=== PATIENT | male | born 1965 | race Caucasian/White ===

== ENCOUNTER 2020-08-22 08:57 | Outpatient (CLI) | payer MEDICAID, SELFPAY ==
--- NOTE | 2020-08-22 09:01 | CT_ITS ---
WS: [id number] CT CHEST WITH INTRAVENOUS CONTRAST HISTORY: HEAD/NECK CANCER TECHNIQUE: Contiguous 5 mm axial imaging performed on the thorax. Coronal and sagittal reformats are submitted. All CT scans at [facility] use at least one of these dose optimization techniq ues: automated exposure control; mA and/or kV adjustment per patient size (includes targeted exams wh ere dose is matched to clinical indication); or iterative reconstruction. CONTRAST: Omnipaque 300; 95 mL IV. DLP: 624.47 mGy.cm COMPARISON: 08/24/2019 Lungs and central airway: No pulmonary nodules or masses. No pneumonia. Pleura: Normal. No pleural effusion. Heart and pericardium: Normal size heart with no pericardial effusion. Mediastinum and gil: Subcentimeter RIGHT hilar lymph node at 8 mm. No suspicious adenopathy. Vessels: Normal size aortic and pulmonary artery. Chest wall and lower neck: No soft tissue masses. Upper abdomen: Small hiatal hernia and mild thickening of the distal esophagus. Mild hepatic steatosi s. Visualized gallbladder is normal. No adrenal mass. Osseous structures: No destructive process. CT/CT chest w con* [id number] IMPRESSION: 1. No evidence for pulmonary metastatic disease or pneumonia. 2. No adenopathy. 3. Mild thickening of the distal esophagus may be related to esophagitis or re flux disease.
--- NOTE | 2020-08-22 09:01 | CT_ITS ---
WS: [id number] CT NECK WITH CONTRAST HISTORY: HEAD/NECK CANCER TECHNIQUE: Contiguous 5 mm axial images are performed through the neck with intravenous contrast. Sag ittal and coronal reformats are also submitted. All CT scans at [facility] use at least o ne of these dose optimization techniques: automated exposure control; mA and/or kV adjustment per pat ient size (includes targeted exams where dose is matched to clinical indication); or iterative recons truction. CONTRAST: CONTRAST: Omnipaque 300; 95 mL IV. DLP: 731.46 mGy.cm COMPARISON: 06/15/2019 Prior resection of the oral pharyngeal tumor, partial LEFT mandibular and LEFT radical neck dissectio n. Stable postsurgical changes along the LEFT neck and mandible. There is no recurrent mass identified. The soft tissue enhancement and thickening has improved over time. No compromise of the airway. No ad enopathy along the cervical chains. There is new thrombus in the posterior LEFT carotid bifurcation measuring up to 5 mm in diameter. Lum en of the carotid remains greater than 50%. Mucous retention cyst in the RIGHT maxillary sinus. Bilateral mucoperiosteal thickening in the maxill fede cavities. There is extensive areas of decreased attenuation throughout the mandible and maxilla which are proba thomas related to prior radiation and treatment and dental caries. No soft tissue masses associated with the mandible or maxilla. Lung apices are clear. CT/CT neck w con* [id number] IMPRESSION: 1. Status post resection of an oropharyngeal tumor with partial LEFT mandible and LEFT radical neck dissection. 2. No recurrent tumor or adenopathy. 3. New mural thickening in the LEFT carotid bifurcation.
[2020-08-22] MEDS: iohexol 300 mg/mL 100 mL Btl IV ×2 (10:29→10:30)
== END 2020-08-22 08:58 | disposition home or self-care (01) ==
LOC: CT 08:58
PROVIDERS: PCP Family Medicine; Visit Provider Internal Medicine Medical Oncology
DX: C06.2 Malignant neoplasm of retromolar area (principal); D70.1 Agranulocytosis secondary to cancer chemotherapy; G89.3 Neoplasm related pain (acute) (chronic)
CPT/HCPCS: 70491; 71260

== ENCOUNTER 2020-08-24 15:54 | Outpatient (CLI) | payer MEDICAID, SELFPAY ==
[2020-08-24 16:55] LABS: Alanine Aminotransferase 43 U/L (0-41); Albumin Level 4.3 g/dL (3.5-5.2); Alkaline Phosphatase 93 IU/L (40-130); Anion Gap 14.4 (5-19); Aspartate Amino Transferase 26 U/L (0-40); Blood Urea Nitrogen 24 mg/dL (6-20); Calcium 9.2 mg/dL (8.5-10.5); Carbon Dioxide 25 mmol/L (22-29); Chloride 103 mmol/L (98-107); Globulin 2.8 g/dL (1.3-4.6); Glomerular Filtration Rate 62.4 mL/min (90-130); Glucose 106 mg/dL (65-115); Osmolality Calculated 290 mOsm/kg (285-295); Potassium 4.4 mmol/L (3.5-5.1); Sodium 138 mmol/L (136-145); Total Bilirubin 0.2 mg/dL (0.15-1.2); Total Protein 7.1 g/dL (6.6-8.7)
[2020-08-24 17:17] LABS: Basophils % 0.5 %; Eosinophils # 0.1 10^3/uL (0.0-0.8); Eosinophils % 1.4 %; Lymphocytes # 0.9 10^3/uL (0.8-4.8); Lymphocytes % 15.4 %; Mean Corpuscular HGB Conc 31.9 g/dL (30.0-36.0); Mean Corpuscular Hemoglobin 31.3 pg (28.0-34.0); Mean Corpuscular Volume 98.1 fL (80-94); Mean Platelet Volume 8.9 fL (7.4-10.4); Monocytes # 0.8 10^3/uL (0.2-0.9); Monocytes % 13.8 %; Neutrophils # 3.95 10^3/uL (1.8-7.7); Neutrophils % 68.2 %; Nucleated Red Blood Cells % 0 %; Platelet Count 319 10^3/cmm (130-400); Red Blood Count 4.79 10^6/uL (4.1-5.3); Red Cell Distribution Width 12.8 % (12.1-15.1); White Blood Count 5.8 10^3/uL (4.0-10.0)
== END 2020-08-24 15:55 | disposition home or self-care (01) ==
PROVIDERS: PCP Family Medicine; Visit Provider Internal Medicine Medical Oncology
DX: C06.2 Malignant neoplasm of retromolar area (principal); E03.9 Hypothyroidism, unspecified
CPT/HCPCS: 36415; 80053; 84443; 85025

== ENCOUNTER 2020-08-28 06:01 | Outpatient (CLI) | payer MEDICAID, SELFPAY ==
--- NOTE | 2020-08-29 07:25 | ONC FU_ITS ---
Dr. Kimball Patient Follow-Up Note Patient: Guido Haney Unit #: [id number]: 1965 Dicatated By: Guido Kimball M.D.Date of Visit:Aug 28, 2020 Onc Med Follow-up/Prog Note Chief Complaint: Squamous cell carcinoma of the oropharynx. 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 He had presented with left jaw pain, onset of which was back in the summer of 2018. Eventually he was referred to an ENT physician and he was found to have a left retromolar trigone mass. A CT of the neck on 11/30/2018 showed a large enhancing mass including the left oropharyngeal palatine tonsil and the student teaching coordinator space abutting the left mandibular body. Prominent level II lymph nodes were noted on the left and subcentimeter nodes were noted in the level III area. Biopsy of the mass on 12/07/2018 showed invasive moderately differentiated keratinizing squamous cell carcinoma, P 16 negative. Staging PET/CT on 12/08/2018 showed hyperbolic mass which appeared to be centered within the left retromolar trigone with cortical destruction of the adjacent mandibular ramus. There was asymmetric hypermetabolism fullness along the left pharyngeal wall/tonsillar pillar which was felt to be concerning for direct extension of the primary retromolar lesion. There were hypermetabolic left level IIb cervical lymph nodes. There were no additional discrete hypermetabolic cervical lymph nodes noted and there was no evidence of distant metastatic involvement. A conspicuous area of mural thickening hypermetabolism within the left lateral aspect of the distal descending colon, maximum SUV 3.5, was felt to possibly represent an area of physiologic contraction, though direct visualization was recommended to exclude neoplastic process. On 12/23/2018 he underwent resection of the left retrocrural trigone tumor and oropharynx tumor with left composite mandibular resection and left neck dissection. Pathology showed invasive moderately differentiated keratinizing squamous cell carcinoma of the left retromolar trigone region with marked deep extension of the underlying mucosa and extension into the left tonsil and oral pharynx. The tumor measured 2.9 x 2.5 cm. Mucosal margins were noted to be free of tumor, but there was extensive involvement of the deep soft tissue resection margins. Tumor was noted to invade through the cortical bone of the mandible. The mandibular bone margin was negative. The left neck dissection showed involvement in 4/9 level 1 lymph nodes, the largest measuring 0.8 cm in diameter and with no extracapsular invasion identified. There was metastatic involvement in 3/17 level 2 nodes with the largest metastasis measuring 2 cm with evidence of extracapsular invasion. There was no involvement in the 11 level III lymph nodes and no involvement in 5 level IV lymph nodes. Excision of left pterygium noted muscle soft tissue did show invasive moderately differentiated squamous cell carcinoma. The final pathologic staging was pT4a, pN2b. He began radiation concurrently with standard high-dose cisplatin chemotherapy on 03/03/2019. He completed radiation on 04/22/2019 to a total dose of 5600 cGy. His chemotherapy was limited to 2 cycles of cisplatin, the second cycle having been delayed due to persistent neutropenia. He otherwise tolerated the treatment well. Restaging neck CT on 06/17/2019 showed postoperative changes with no evidence of residual or recurrent neoplastic process or adenopathy. There was evidence of right upper lobe pneumonitis and there was evidence of C5-C6 and C6-C7 cervical spondylosis. He continued observation/expectant management. A restaging PET/CT on 08/24/2019 showed some uptake associated with the mandibulectomy, but there was no evidence of residual or recurrent disease. His other medical illnesses have been limited to hypertension and hyperlipidemia. He is a nonsmoker, but he has a long history of chewing tobacco, which she quit in 2015. 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 INTERIM HISTORY: Surveillance CT of the neck on 08/22/2020 showed changes associated with prior resection of oropharyngeal tumor with partial left mandible and left radical neck dissection. There was no evidence for recurrent tumor or adenopathy. There was evidence for new mural thickening in the left carotid bifurcation. Chest CT at that time showed no evidence for pulmonary metastatic disease. There was no hilar/mediastinal adenopathy noted. There was mild thickening of the distal esophagus, possibly related to esophagitis or reflux disease. He is seen for a follow-up visit. He indicates that he had a minor viral illness 2 weeks ago. His COVID-19 testing was negative. He says he still has some mild residual lung congestion and a little bit of cough, but he is mostly recovered. His energy is not as good, but he is working. ECOG score is 1. Appetite is not all that good, mainly because of the effort it takes for him to chew and eat. His weight, though, is up a few pounds. He does not have fever or night sweats. He still has some difficulty swallowing, particularly textured foods. His breathing is pretty good. He does not have chest pain. He was having some nausea, that has resolved. Bowel and bladder function have been pretty good, though he is prone to having loose stools. He has had some pain in his right ankles and his knees bother him occasionally. He does not complain of headache or dizziness. He has no focal neurologic symptoms. Medications: Atorvastatin Calcium 1 (20 mg) Tablet Oral daily, Gabapentin 1 Capsule (of 300 mg) Oral t.i.d. PRN Allergies: No Known Allergies. Review of Systems: Constitutional - His energy is not as good, but he is working. His appetite is not very good, mainly because of the effort involved in eating. His weight is up a little. He has not had fever or night sweats. ECOG score is 1, ENMT - No sinus congestion/drainage. No soreness in the mouth or throat, but he has difficutly with chewing, and he still has some difficulty swallowing, particulary foods with texture, Hematologic/Lymphatic - No abnormal bruising or bleeding, Respiratory - No shortness of breath. He has a little bit of residual cough. No pleuritic pain or hemoptysis, Cardiovascular - No angina pain. No palpitations, Gastrointestinal - He had some nausea with a recent viral illness. No heartburn or acid reflux. His bowels tend to be loose. No blood in the stool or black stools, Genitourinary (M) - No dysuria or hematuria. No urinary frequency. No urgency or incontinence, Musculoskeletal - He has had some joint pain, mainly in the right ankle and occasionally in the knees, Integumentary - No skin rash, Neurologic - No headache or dizziness. No numbness or tingling. No other focal neurologic symptoms, Psychiatric - He has some anxiety/depression and he has some difficulty sleeping. Vital Signs: Performed on Aug 28, 2020 09:19 Height - 68.00 in Weight - 171.6 lbs (HIGH) BSA - 1.92 sq.m BMI - 26.09 Temperature - 97.6 F (LOW) Pulse - 92 /min Respiration - 16 /min BP - 141/83 mm(hg) (HIGH) O2 Sat - 99 % Pain - 0 Physical Examination: Constitutional - He looks pretty good generally, Eyes - Sclerae nonicteric. Conjunctivae clear, ENMT - There is deformity wtihin the oral cavity related to prior surgeries and he has limited mobility of the mouth. There are no other lesions noted in the oral cavity, Hematologic/Lymphatic - No cervical, clavicular, or axillary adenopathy, Respiratory - Lungs are clear with some decrease in air movement bilaterally, Cardiovascular - Heart rhythm is regular. There is no murmur, gallop, or rub noted. There is no carotid bruit noted, Abdomen - Soft. Liver and spleen are not enlarged. There is no abdominal mass or ascites noted and there is no inguinal adenopathy, Extremities - No edema, Neurologic - There is a left facial deficit. There are no other focal neurologic deficits noted. Lab/Imaging: Test performed on Aug 24, 2020 16:04 Sodium 138 mmol/L TSH 17.40 uIU/mL Potassium 4.4 mmol/L Chloride 103 mmol/L CO2 25 mmol/L Anion Gap 14.4 BUN 24 mg/dL Creatinine 1.2 mg/dL Cr Clearance (Est) 70.1600 mL/min eGFR 62.4 mL/min Glucose 106 mg/dL Osmolality - Calculated 290 mOsm/kg Calcium 9.2 mg/dL Protein, Total 7.1 g/dL Albumin 4.3 g/dL Globulin 2.8 g/dL Bilirubin, Total 0.2 mg/dL ALT (SGPT) 43 U/L AST (SGOT) 26 U/L Alkaline Phosphatase 93 IU/L WBC 5.8 10 3/uL RBC 4.79 10 6/uL HGB 15.0 g/dL HCT 47.0 % MCV 98.1 fL MCH 31.3 pg MCHC 31.9 g/dL RDW 12.8 % Platelet Count 319 10 3/cmm MPV 8.9 fL Neutrophils 3.95 10 3/uL Lymphocytes 0.9 10 3/uL Monocytes 0.8 10 3/uL Eosinophils 0.1 10 3/uL Basophils 0.0 10 3/uL Neutrophil % 68.2 % Lymphocyte % 15.4 % Monocyte % 13.8 % Eosinophil % 1.4 % Basophils % 0.5 % NRBC % 0 % Impression: 1. 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 2. He underwent extensive surgical resection which included resection of the oral cavity and composite resection of the mandible, right anterolateral thigh free flap reconstruction, pharyngoplasty, and left radical neck dissection on 12/23/2018. 3. He began radiation concurrently with standard high-dose cisplatin chemotherapy on 03/03/2019. He completed radiation on 04/22/2019 to a total dose of 5600 cGy. His chemotherapy was limited to 2 cycles of cisplatin, the second cycle having been delayed due to persistent neutropenia. He otherwise tolerated the treatment well. He was then followed on observation/expectant management. 4. Restaging PET/CT on 08/24/2019 showed uptake associated with the mandibulectomy, but no evidence of residual or recurrent malignancy. His other medical illnesses include: 5. Hypertension. 6. Hyperlipidemia. He had gradual recovery following the chemoradiation. Initially he was having difficulty adjusting to the structural changes associated with the surgery and the after-effects of the chemoradiation. Over time that did gradually improve. During subsequent follow-up, his clinical status has remained stable. Thus far there has been no evidence of recurrence of the oropharynx cancer. There is some new mural thickening at the left carotid bifurcation noted on his current CT scan. Plan: He will remain on observation/expectant management for the oropharynx cancer. I will review the neck CT with the radiologist, and I will discuss further management for the carotid artery findings with Dr. Stewart. I will tentatively plan a follow-up visit in 6 months. Signed By: Guido Kimball M.D. <<Signature on File>>
== END 2020-08-28 06:02 | disposition home or self-care (01) ==
LOC: ONCMED 06:03
PROVIDERS: PCP Family Medicine; Visit Provider Internal Medicine Medical Oncology
DX: Z08 Encounter for follow-up examination after completed treatment for malignant neoplasm (principal); Z85.818 Personal history of malignant neoplasm of other sites of lip, oral cavity, and pharynx; I10 Essential (primary) hypertension; E78.5 Hyperlipidemia, unspecified; Z92.3 Personal history of irradiation; Z92.21 Personal history of antineoplastic chemotherapy; Z23 Encounter for immunization
CPT/HCPCS: 90686; 90732; 99214

== ENCOUNTER 2020-10-23 08:05 | Outpatient (CLI) | payer MEDICAID, SELFPAY ==
--- NOTE | 2020-10-23 08:09 | CT_ITS ---
WS: [id number] Exam: CT angio neck [id number] Date/Time of Exam: 10/23/2020 8:19 AM Reason For Exam: MALIGNANT [place] RETROMOLAR AREA; ATHEROSCLEROSIS L CAROTID DLP: 842.[address] scans at [facility] use at least one of these dose optimization techniques: automat ed exposure control; mA and/or kV adjustment per patient size (includes targeted exams where dose is matched to clinical indication); or iterative reconstruction. The neck is evaluated in the axial plane with sagittal coronal reformatted images. Comparison made to previous exam 06/17/2019. 100 mL of nonionic contrast administered intravenously. There are signs of prior radical left neck dissection without evidence of the new or recurrent mass. Stable appearing postoperative changes are noted. The body and ramus of the left mandible are surgic ally absent. No significant lymphadenopathy demonstrated. The bilateral common carotid and extracrani al internal carotid arteries are patent. Patent bilateral vertebral arteries, the left is dominant. N o mass is seen in the region of the tongue base. The airway is patent. Unremarkable thyroid tissue. T he upper lung zones show no mass or nodule. Emphysematous changes. The great vessels are patent at th e level of the aortic arch. Mucosal thickening in the sphenoid, ethmoid and maxillary sinuses. 2.2 c m retention cyst in the right maxillary sinus. Degenerative disc changes and mild spondylosis identif ied at the lower cervical spine. No destructive bone lesions are seen. CT/CT angio neck [id number] IMPRESSION: 1. Status post radical left neck dissection with surgical absence of the left m andible as previously noted. No sign of recurrent or new mass in the neck. No s ignificant lymphadenopathy. 2. The bilateral common carotid and extracranial internal carotid arteries are widely patent without critical stenosis or occlusion. 3. Moderately advanced chronic maxillary sinusitis noted bilaterally. Mild dba developer jake sinus disease of the ethmoid and sphenoid sinuses.
[2020-10-23] MEDS: iohexol 350 mg/mL 100 mL Btl IV (08:50)
== END 2020-10-23 08:06 | disposition home or self-care (01) ==
LOC: RADWPI 08:06
PROVIDERS: PCP Family Medicine; Visit Provider Internal Medicine Medical Oncology
DX: I65.22 Occlusion and stenosis of left carotid artery (principal); J32.0 Chronic maxillary sinusitis
CPT/HCPCS: 70498; Q9967

== ENCOUNTER 2021-02-21 13:02 | Outpatient (CLI) | payer MEDICAID, SELFPAY ==
--- NOTE | 2021-02-21 13:14 | CT_ITS ---
WS: [id number] CT NECK TECHNIQUE: Contrast-enhanced CT of the neck with coronal and sagittal reformatted images. CLINICAL INFORMATION: HEAD/NECK CANCER COMPARISON: CT August 22, 2020, PET/CT , CT June 17, [address] and PET/CT November 2018 DLP: 2460.[address] scans at [facility] use at least one of these dose optimization techniques: automat ed exposure control; mA and/or kV adjustment per patient size (includes targeted exams where dose is matched to clinical indication); or iterative reconstruction. FINDINGS: Prior postoperative changes left hemimandibulectomy and left neck dissection for previous left retrot rigonal malignancy. Left submandibular gland resection. No evidence of recurrent or progressive disea se. No evidence of glottic or supraglottic mass. Subglottic airway is normal. Right parotid gland is normal in appearance. Retention cyst right maxillary sinus with mucosal thickening. Mild mucosal thickening left maxillary sinus. Mastoid air cells are well aerated. Frontal sinuses are well aerated. Mild mucosal thickening in the ethmoid air cells. Straightening of the normal cervical lordosis. Mild spondylitic changes. Pa rtially visualized intracranial contents unremarkable. Normal vallecula. Unremarkable thyroid gland. Lung apices are well aerated. CT/CT neck w con* [id number] IMPRESSION: 1. Prior postoperative changes left mandibulectomy with left radical neck diss ection. No evidence of recurrent or progressive disease. 2. Resection left submandibular gland with treatment-related changes in the le ft neck. 3. No cervical lymphadenopathy. 4. No evidence of supraglottic or glottic mass. 5. Retention cyst right maxillary sinus measuring 1.9 CM. Inflammatory changes in the paranasal sinuses.
[2021-02-21] MEDS: iohexol 300 mg/mL 100 mL Btl IV (13:38)
== END 2021-02-21 13:03 | disposition home or self-care (01) ==
PROVIDERS: PCP Family Medicine; Visit Provider Internal Medicine Medical Oncology
DX: C06.2 Malignant neoplasm of retromolar area (principal); M27.40 Unspecified cyst of jaw
CPT/HCPCS: 70491; Q9967

== ENCOUNTER 2021-02-23 10:37 | Outpatient (CLI) | payer MEDICAID, SELFPAY ==
--- NOTE | 2021-02-23 10:46 | CT_ITS ---
WS: [id number] CT CHEST TECHNIQUE: Contrast enhanced CT of the chest with coronal and sagittal reformatted images. CLINICAL INFORMATION: HEAD/NECK CANCER COMPARISON: CT chest August 22, 2020 DLP: 899.[address] scans at [facility] use at least one of these dose optimization techniques: automat ed exposure control; mA and/or kV adjustment per patient size (includes targeted exams where dose is matched to clinical indication); or iterative reconstruction. FINDINGS: No acute pulmonary infiltrates. Lungs are well aerated. No focal pneumonia or pleural fluid. No suspi cious pulmonary parenchymal abnormalities. Normal caliber thoracic aorta. Proximal main pulmonary art eries are normal. No axillary lymphadenopathy. No mediastinal or hilar lymphadenopathy. Adrenal glands are normal. Fluid distended stomach. Mild diffuse thickening of the distal esophagus c an be seen with esophagitis. Recommend clinical correlation. This is similar in appearance to the toan or examination. Gastric wall thickening with enhancement suspicious for gastritis CT/CT chest w con* [id number] IMPRESSION: 1. No acute pulmonary infiltrates. No suspicious pulmonary parenchymal abnorma lities. No evidence of pulmonary metastatic disease. 2. No mediastinal or hilar lymphadenopathy. 3. No axillary lymphadenopathy. 4. Mild circumferential thickening in the distal esophagus with gastric enhanc ement suspicious for gastritis and esophagitis.
[2021-02-23] MEDS: iohexol 300 mg/mL 100 mL Btl IV (11:04)
== END 2021-02-23 10:38 | disposition home or self-care (01) ==
PROVIDERS: PCP Family Medicine; Visit Provider Internal Medicine Medical Oncology
DX: C76.0 Malignant neoplasm of head, face and neck (principal)
CPT/HCPCS: 71260; Q9967

== ENCOUNTER 2021-02-27 12:27 | Outpatient (CLI) | payer MEDICAID, SELFPAY ==
[2021-02-27 12:57] LABS: Basophils % 0.4 %; Eosinophils % 0.6 %; Hematocrit 45.8 % (42.0-52.0); Hemoglobin 14.8 g/dL (11.7-16.6); Lymphocytes # 0.7 10^3/uL (0.8-4.8); Lymphocytes % 14.1 %; Mean Corpuscular HGB Conc 32.3 g/dL (30.0-36.0); Mean Corpuscular Hemoglobin 31.6 pg (28.0-34.0); Mean Corpuscular Volume 97.9 fL (80-94); Mean Platelet Volume 8.5 fL (7.4-10.4); Monocytes # 0.6 10^3/uL (0.2-0.9); Monocytes % 11.5 %; Neutrophils # 3.68 10^3/uL (1.8-7.7); Nucleated Red Blood Cells % 0 %; Platelet Count 251 10^3/cmm (130-400); Red Blood Count 4.68 10^6/uL (4.1-5.3)
[2021-02-27 13:50] LABS: Alanine Aminotransferase 56 U/L (0-41); Albumin Level 3.9 g/dL (3.5-5.2); Alkaline Phosphatase 72 IU/L (40-130); Anion Gap 12.7 (5-19); Aspartate Amino Transferase 42 U/L (0-40); Blood Urea Nitrogen 26 mg/dL (6-20); Calcium 8.5 mg/dL (8.5-10.5); Carbon Dioxide 29 mmol/L (22-29); Chloride 101 mmol/L (98-107); Globulin 2.3 g/dL (1.3-4.6); Glucose 96 mg/dL (65-115); Osmolality Calculated 291 mOsm/kg (285-295); Potassium 4.7 mmol/L (3.5-5.1); Sodium 138 mmol/L (136-145); Thyroid Stimulating Hormone 3.36 uIU/mL (0.27-4.20); Total Bilirubin 0.2 mg/dL (0.15-1.2); Total Protein 6.2 g/dL (6.6-8.7)
--- NOTE | 2021-03-03 10:35 | ONC FU_ITS ---
Dr. Kimball Patient Follow-Up Note Patient: Guido Haney Unit #: [id number]: [id number] Dicatated By: Guido Kimball M.D.Date of Visit:February 27, 2021 Onc Med Follow-up/Prog Note Chief Complaint: Squamous cell carcinoma of the oropharynx. 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 He had presented with left jaw pain, onset of which was back in the summer of 2018. Eventually he was referred to an ENT physician and he was found to have a left retromolar trigone mass. A CT of the neck on 11/30/2018 showed a large enhancing mass including the left oropharyngeal palatine tonsil and the principal account clerk space abutting the left mandibular body. Prominent level II lymph nodes were noted on the left and subcentimeter nodes were noted in the level III area. Biopsy of the mass on 12/07/2018 showed invasive moderately differentiated keratinizing squamous cell carcinoma, P 16 negative. Staging PET/CT on 12/08/2018 showed hyperbolic mass which appeared to be centered within the left retromolar trigone with cortical destruction of the adjacent mandibular ramus. There was asymmetric hypermetabolism fullness along the left pharyngeal wall/tonsillar pillar which was felt to be concerning for direct extension of the primary retromolar lesion. There were hypermetabolic left level IIb cervical lymph nodes. There were no additional discrete hypermetabolic cervical lymph nodes noted and there was no evidence of distant metastatic involvement. A conspicuous area of mural thickening hypermetabolism within the left lateral aspect of the distal descending colon, maximum SUV 3.5, was felt to possibly represent an area of physiologic contraction, though direct visualization was recommended to exclude neoplastic process. On 12/23/2018 he underwent resection of the left retrocrural trigone tumor and oropharynx tumor with left composite mandibular resection and left neck dissection. Pathology showed invasive moderately differentiated keratinizing squamous cell carcinoma of the left retromolar trigone region with marked deep extension of the underlying mucosa and extension into the left tonsil and oral pharynx. The tumor measured 2.9 x 2.5 cm. Mucosal margins were noted to be free of tumor, but there was extensive involvement of the deep soft tissue resection margins. Tumor was noted to invade through the cortical bone of the mandible. The mandibular bone margin was negative. The left neck dissection showed involvement in 4/9 level 1 lymph nodes, the largest measuring 0.8 cm in diameter and with no extracapsular invasion identified. There was metastatic involvement in 3/17 level 2 nodes with the largest metastasis measuring 2 cm with evidence of extracapsular invasion. There was no involvement in the 11 level III lymph nodes and no involvement in 5 level IV lymph nodes. Excision of left pterygium noted muscle soft tissue did show invasive moderately differentiated squamous cell carcinoma. The final pathologic staging was pT4a, pN2b. He began radiation concurrently with standard high-dose cisplatin chemotherapy on 03/03/2019. He completed radiation on 04/22/2019 to a total dose of 5600 cGy. His chemotherapy was limited to 2 cycles of cisplatin, the second cycle having been delayed due to persistent neutropenia. He otherwise tolerated the treatment well. Restaging neck CT on 06/17/2019 showed postoperative changes with no evidence of residual or recurrent neoplastic process or adenopathy. There was evidence of right upper lobe pneumonitis and there was evidence of C5-C6 and C6-C7 cervical spondylosis. He continued observation/expectant management. A restaging PET/CT on 08/24/2019 showed some uptake associated with the mandibulectomy, but there was no evidence of residual or recurrent disease. His other medical illnesses have been limited to hypertension and hyperlipidemia. He is a nonsmoker, but he has a long history of chewing tobacco, which she quit in 2015. 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 INTERIM HISTORY: Surveillance CT of the neck on 08/22/2020 showed changes associated with prior resection of oropharyngeal tumor with partial left mandible and left radical neck dissection. There was no evidence for recurrent tumor or adenopathy. There was evidence for new mural thickening in the left carotid bifurcation. Chest CT at that time showed no evidence for pulmonary metastatic disease. There was no hilar/mediastinal adenopathy noted. There was mild thickening of the distal esophagus, possibly related to esophagitis or reflux disease. He continued expectant management. He is seen for a follow-up visit. He has been feeling pretty good generally, though he has been feeling a little more fatigued. He is working, but he is tired by the end of the day. Appetite is not that great, mainly because he still has difficulty chewing and he has been having to eat blended food. Weight is down a couple of pounds. He does not have fever or night sweats. He is able to swallow pretty well. He has some cough, but nothing unusual. He does not complain of shortness of breath or chest pain. Lately he has had some postprandial nausea. He has just occasional acid reflux. Bowel and bladder function have been okay. He says he has is normal arthritis pain, mainly in the hands, hips, and knees. He does not complain of headache. He has some mild orthostatic lightheadedness. He has no numbness/paresthesia or other focal neurologic symptoms. Medications: Aspirin (325 mg) Tablet, enteric coated Oral daily, Atorvastatin Calcium 1 (20 mg) Tablet Oral daily Allergies: No Known Allergies. Vital Signs: Performed on February 27, 2021 16:09 Height - 68.00 in Weight - 168.2 lbs (LOW) BSA - 1.90 sq.m BMI - 25.57 Temperature - 98.9 F (HIGH) Pulse - 78 /min Respiration - 18 /min BP - 140/93 mm(hg) O2 Sat - 93 % (LOW) Pain - 0 Fatigue - 4 Physical Examination: Constitutional - He looks pretty good generally, Eyes - Sclerae nonicteric. Conjunctivae clear, ENMT - There is deformity wtihin the oral cavity related to prior surgeries. There is limited mobility of the mouth. There are no other lesions noted in the oral cavity, Neck - There is induration on the left side of the neck. There is no mass palpable, Hematologic/Lymphatic - No cervical, clavicular, or axillary adenopathy, Respiratory - Lungs are clear with some decrease in air movement bilaterally, Cardiovascular - Heart rhythm is regular. There is no murmur, gallop, or rub noted. There is no carotid bruit noted, Abdomen - Soft. Liver and spleen are not enlarged. There is no abdominal mass or ascites noted and there is no inguinal adenopathy, Extremities - No edema, Neurologic - There is a left facial deficit. There are no other focal neurologic deficits noted. Lab/Imaging: Test performed on February 27, 2021 12:45 Sodium 138 mmol/L TSH 3.36 uIU/mL Potassium 4.7 mmol/L Chloride 101 mmol/L CO2 29 mmol/L Anion Gap 12.7 BUN 26 mg/dL Creatinine 1.1 mg/dL Cr Clearance (Est) 76.5300 mL/min eGFR 69.0 mL/min Glucose 96 mg/dL Osmolality - Calculated 291 mOsm/kg Calcium 8.5 mg/dL Protein, Total 6.2 g/dL Albumin 3.9 g/dL Globulin 2.3 g/dL Bilirubin, Total 0.2 mg/dL ALT (SGPT) 56 U/L AST (SGOT) 42 U/L Alkaline Phosphatase 72 IU/L WBC 5.0 10 3/uL RBC 4.68 10 6/uL HGB 14.8 g/dL HCT 45.8 % MCV 97.9 fL MCH 31.6 pg MCHC 32.3 g/dL RDW 13.0 % Platelet Count 251 10 3/cmm MPV 8.5 fL Neutrophils 3.68 10 3/uL Lymphocytes 0.7 10 3/uL Monocytes 0.6 10 3/uL Eosinophils 0.0 10 3/uL Basophils 0.0 10 3/uL Neutrophil % 73.0 % Lymphocyte % 14.1 % Monocyte % 11.5 % Eosinophil % 0.6 % Basophils % 0.4 % NRBC % 0 % Problem List: 1. 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 2. Hypertension. 3. Hyperlipidemia. 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 He underwent extensive surgical resection which included resection of the oral cavity and composite resection of the mandible, right anterolateral thigh free flap reconstruction, pharyngoplasty, and left radical neck dissection on 12/23/2018. He began radiation concurrently with standard high-dose cisplatin chemotherapy on 03/03/2019. He completed radiation on 04/22/2019 to a total dose of 5600 cGy. His chemotherapy was limited to 2 cycles of cisplatin, the 2nd cycle having been delayed due to persistent neutropenia. He was then followed on observation/expectant management. During follow-up he has had some ongoing difficulty associated with the mandibulectomy. At this point his clinical status appears stable. Thus far there has been no evidence of recurrence of the oropharyngeal cancer. He remains on observation/expectant management for the oropharynx cancer. I will see him again in 6 months. Signed By: Guido Kimball M.D. <<Signature on File>>
== END 2021-02-27 12:28 | disposition home or self-care (01) ==
LOC: ONCMED 12:29
PROVIDERS: PCP Family Medicine; Visit Provider Internal Medicine Medical Oncology
DX: C06.2 Malignant neoplasm of retromolar area (principal); I10 Essential (primary) hypertension; E78.5 Hyperlipidemia, unspecified; Z79.899 Other long term (current) drug therapy; Z92.21 Personal history of antineoplastic chemotherapy
CPT/HCPCS: 36415; 80053; 84443; 85025; G0463

== ENCOUNTER 2021-09-24 13:24 | Outpatient (CLI) | payer MEDICARE, MEDICAID, SELFPAY ==
[2021-09-24 13:55] LABS: Basophils % 0.4 %; Eosinophils % 0.4 %; Hematocrit 46.7 % (42.0-52.0); Hemoglobin 15.4 g/dL (11.7-16.6); Lymphocytes # 0.7 10^3/uL (0.8-4.8); Lymphocytes % 11.7 %; Mean Corpuscular Hemoglobin 31.3 pg (28.0-34.0); Mean Corpuscular Volume 94.9 fl (80-94); Mean Platelet Volume 8.7 fL (7.4-10.4); Monocytes # 0.6 10^3/uL (0.2-0.9); Monocytes % 10.3 %; Neutrophils # 4.27 10^3/uL (1.8-7.7); Neutrophils % 76.8 %; Nucleated Red Blood Cells % 0 %; Platelet Count 292 10^3/cmm (130-400); Red Blood Count 4.92 10^6/uL (4.1-5.3); Red Cell Distribution Width 12.5 % (12.1-15.1); White Blood Count 5.6 10^3/uL (4.0-10.0)
[2021-09-24 14:30] LABS: Alanine Aminotransferase 42 U/L (0-41); Albumin Level 4.4 g/dL (3.5-5.2); Alkaline Phosphatase 70 IU/L (40-130); Aspartate Amino Transferase 30 U/L (0-40); Blood Urea Nitrogen 33 mg/dL (6-20); Calcium 8.9 mg/dL (8.5-10.5); Carbon Dioxide 23 mmol/L (22-29); Chloride 104 mmol/L (98-107); Glomerular Filtration Rate 99.3 mL/min (90-130); Glucose 110 mg/dL (65-115); Osmolality Calculated 300 mOsm/kg (285-295); Sodium 141 mmol/L (136-145); Total Bilirubin 0.2 mg/dL (0.15-1.2); Total Protein 6.4 g/dL (6.6-8.7)
[2021-09-24 14:33] LABS: Anion Gap 18.4 (5-19); Potassium 4.4 mmol/L (3.5-5.1)
[2021-09-24] MEDS: pneumococcal (23 valent) SDV 0.5 mL IM (15:30)
[2021-09-24 18:14] LABS: Thyroid Stimulating Hormone 3.77 uIU/mL (0.27-4.20)
--- NOTE | 2021-09-28 20:16 | ONC FU_ITS ---
Dr. Kimball Patient Follow-Up Note Patient: Guido Haney Unit #: [id number]: [id number] Dicatated By: Guido Kimball M.D.Date of Visit:Sep 24, 2021 Onc Med Follow-up/Prog Note Chief Complaint: Squamous cell carcinoma of the oropharynx. 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 He had presented with left jaw pain, onset of which was back in the summer of 2018. Eventually he was referred to an ENT physician and he was found to have a left retromolar trigone mass. A CT of the neck on 11/30/2018 showed a large enhancing mass including the left oropharyngeal palatine tonsil and the brake drum lathe operator space abutting the left mandibular body. Prominent level II lymph nodes were noted on the left and subcentimeter nodes were noted in the level III area. Biopsy of the mass on 12/07/2018 showed invasive moderately differentiated keratinizing squamous cell carcinoma, P 16 negative. Staging PET/CT on 12/08/2018 showed hyperbolic mass which appeared to be centered within the left retromolar trigone with cortical destruction of the adjacent mandibular ramus. There was asymmetric hypermetabolism fullness along the left pharyngeal wall/tonsillar pillar which was felt to be concerning for direct extension of the primary retromolar lesion. There were hypermetabolic left level IIb cervical lymph nodes. There were no additional discrete hypermetabolic cervical lymph nodes noted and there was no evidence of distant metastatic involvement. A conspicuous area of mural thickening hypermetabolism within the left lateral aspect of the distal descending colon, maximum SUV 3.5, was felt to possibly represent an area of physiologic contraction, though direct visualization was recommended to exclude neoplastic process. On 12/23/2018 he underwent resection of the left retrocrural trigone tumor and oropharynx tumor with left composite mandibular resection and left neck dissection. Pathology showed invasive moderately differentiated keratinizing squamous cell carcinoma of the left retromolar trigone region with marked deep extension of the underlying mucosa and extension into the left tonsil and oral pharynx. The tumor measured 2.9 x 2.5 cm. Mucosal margins were noted to be free of tumor, but there was extensive involvement of the deep soft tissue resection margins. Tumor was noted to invade through the cortical bone of the mandible. The mandibular bone margin was negative. The left neck dissection showed involvement in 4/9 level 1 lymph nodes, the largest measuring 0.8 cm in diameter and with no extracapsular invasion identified. There was metastatic involvement in 3/17 level 2 nodes with the largest metastasis measuring 2 cm with evidence of extracapsular invasion. There was no involvement in the 11 level III lymph nodes and no involvement in 5 level IV lymph nodes. Excision of left pterygium noted muscle soft tissue did show invasive moderately differentiated squamous cell carcinoma. The final pathologic staging was pT4a, pN2b. He began radiation concurrently with standard high-dose cisplatin chemotherapy on 03/03/2019. He completed radiation on 04/22/2019 to a total dose of 5600 cGy. His chemotherapy was limited to 2 cycles of cisplatin, the second cycle having been delayed due to persistent neutropenia. He otherwise tolerated the treatment well. Restaging neck CT on 06/17/2019 showed postoperative changes with no evidence of residual or recurrent neoplastic process or adenopathy. There was evidence of right upper lobe pneumonitis and there was evidence of C5-C6 and C6-C7 cervical spondylosis. He continued observation/expectant management. A restaging PET/CT on 08/24/2019 showed some uptake associated with the mandibulectomy, but there was no evidence of residual or recurrent disease. His other medical illnesses have been limited to hypertension and hyperlipidemia. He is a nonsmoker, but he has a long history of chewing tobacco, which she quit in 2015. 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 INTERIM HISTORY: Surveillance CT of the neck on 08/22/2020 showed changes associated with prior resection of oropharyngeal tumor with partial left mandible and left radical neck dissection. There was no evidence for recurrent tumor or adenopathy. There was evidence for new mural thickening in the left carotid bifurcation. Chest CT at that time showed no evidence for pulmonary metastatic disease. There was no hilar/mediastinal adenopathy noted. There was mild thickening of the distal esophagus, possibly related to esophagitis or reflux disease. He continued expectant management. CT of the neck on 02/21/2021 showed postoperative changes of left mandibulectomy with left radical neck dissection. There was no evidence of recurrent or progressive disease. CT of the chest on 02/23/2021 showed no suspicious pulmonary parenchymal abnormalities and no mediastinal or hilar lymphadenopathy. He is seen for a follow-up visit. He has been feeling pretty good generally. He is working and he has pretty normal activity now. ECOG score is 0. His appetite is still not great. His oral intake is still limited due to his limitations with chewing food. He subsists mostly on smoothies. He has lost weight since his visit in February. He does not have fever or night sweats. He does not have difficulty swallowing. He does not complain of cough, and he has not been having shortness of breath or chest pain. His bowels tend to be loose, most likely related to his diet. He has no other GI or complaints. He has some joint pain, mainly in his hands. He does not complain of headache or dizziness, and he has no focal neurologic symptoms. Medications: Aspirin (325 mg) Tablet, enteric coated Oral daily, Atorvastatin Calcium 1 (20 mg) Tablet Oral daily, Synthroid 1 Tablet (of 50 mcg) Oral daily Allergies: No Known Allergies. Vital Signs: Performed on Sep 24, 2021 15:30 Height - 68.00 in Weight - 160.2 lbs (LOW) BSA - 1.86 sq.m BMI - 24.36 Temperature - 97.6 F (LOW) Pulse - 87 /min Respiration - 18 /min BP - 160/93 mm(hg) (HIGH) O2 Sat - 99 % Pain - 2 Fatigue - 3 Physical Examination: Constitutional - He looks pretty good generally, Eyes - Sclerae nonicteric. Conjunctivae clear, ENMT - There is deformity wtihin the oral cavity related to prior surgeries. There is limited mobility of the mouth. There are no other lesions noted in the oral cavity, Neck - There is only mild induration in the neck. There is no mass palpable, Hematologic/Lymphatic - No cervical, clavicular, or axillary adenopathy, Respiratory - Lungs are clear with some decrease in air movement bilaterally, Cardiovascular - Heart rhythm is regular. There is no murmur, gallop, or rub noted, Abdomen - Soft. Liver and spleen are not enlarged. There is no abdominal mass or ascites noted and there is no inguinal adenopathy, Extremities - No edema, Neurologic - There is a left facial deficit. There are no other focal neurologic deficits noted. Lab/Imaging: Test performed on Sep 24, 2021 13:40 Sodium 141 mmol/L TSH 3.77 uIU/mL Potassium 4.4 mmol/L Chloride 104 mmol/L CO2 23 mmol/L Anion Gap 18.4 BUN 33 mg/dL Creatinine 0.8 mg/dL Cr Clearance (Est) 103.9700 mL/min eGFR 99.3 mL/min Glucose 110 mg/dL Osmolality - Calculated 300 mOsm/kg Calcium 8.9 mg/dL Protein, Total 6.4 g/dL Albumin 4.4 g/dL Globulin 2.0 g/dL Bilirubin, Total 0.2 mg/dL ALT (SGPT) 42 U/L AST (SGOT) 30 U/L Alkaline Phosphatase 70 IU/L WBC 5.6 10 3/uL RBC 4.92 10 6/uL HGB 15.4 g/dL HCT 46.7 % MCV 94.9 fl MCH 31.3 pg MCHC 33.0 g/dL RDW 12.5 % Platelet Count 292 10 3/cmm MPV 8.7 fL Neutrophils 4.27 10 3/uL Lymphocytes 0.7 10 3/uL Monocytes 0.6 10 3/uL Eosinophils 0.0 10 3/uL Basophils 0.0 10 3/uL Neutrophil % 76.8 % Lymphocyte % 11.7 % Monocyte % 10.3 % Eosinophil % 0.4 % Basophils % 0.4 % NRBC % 0 % Problem List: 1. 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 2. Hypertension. 3. Hyperlipidemia. 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 He underwent extensive surgical resection which included resection of the oral cavity and composite resection of the mandible, right anterolateral thigh free flap reconstruction, pharyngoplasty, and left radical neck dissection on 12/23/2018. He began radiation concurrently with standard high-dose cisplatin chemotherapy on 03/03/2019. He completed radiation on 04/22/2019 to a total dose of 5600 cGy. His chemotherapy was limited to 2 cycles of cisplatin, the 2nd cycle having been delayed due to persistent neutropenia. He was then followed on observation/expectant management. During follow-up he has had some ongoing difficulty associated with the mandibulectomy. Overall, though, he has been doing well clinically with no evidence of recurrence of the squamous cell cancer. He remains on expectant management. He will be given a flu shot and Pneumovax today. He will be scheduled for a follow-up visit with restaging CT scans in 6 months. Signed By: Guido Kimball M.D. <<Signature on File>>
== END 2021-09-24 13:25 | disposition home or self-care (01) ==
LOC: ONCMED 13:29
PROVIDERS: PCP Family Medicine; Visit Provider Internal Medicine Medical Oncology
DX: Z08 Encounter for follow-up examination after completed treatment for malignant neoplasm (principal); Z85.818 Personal history of malignant neoplasm of other sites of lip, oral cavity, and pharynx; I10 Essential (primary) hypertension; E78.5 Hyperlipidemia, unspecified; Z92.3 Personal history of irradiation
CPT/HCPCS: 36415; 80053; 84443; 85025; 90471; 90686; 90732; 99214

== ENCOUNTER 2022-04-22 13:31 | Oncology outpatient (recurring) (ONCR) | payer MEDICARE, MEDICAID, SELFPAY ==
--- NOTE | 2022-04-22 13:56 | CT_ITS ---
WS: [id number] CT NECK TECHNIQUE: Contrast-enhanced CT of the neck with coronal and sagittal reformatted images. CLINICAL INFORMATION: RETROMOLAR AREA NEOPLASM COMPARISON: CT neck February 21 2021 August 22, 2020. PET/CT 019 DLP: 205.[address] scans at [facility] use at least one of these dose optimization techniques: automated e xposure control; mA and/or kV adjustment per patient size (includes targeted exams where dose is matc hed to clinical indication); or iterative reconstruction. FINDINGS: Prior postoperative changes partial resection of the LEFT mandible. LEFT neck dissection with resecti on of the LEFT submandibular gland. Prior history of LEFT retrotrigonal malignancy. No evidence of en hancing residual or recurrent disease. Airway is patent. No cervical lymphadenopathy. Postoperative a nd posttherapeutic changes LEFT neck are unchanged. Normal posterior nasopharynx. No evidence of supraglottic or glottic mass. Mastoid air cells are well aerated. Retention cyst or polyp RIGHT maxillary sinus. Mild mucosal thickening in the maxillary sin uses and ethmoid air cells. Mild spondylitic changes cervical spine. Otherwise no significant changes since February 21, 2021. CT/CT neck w con* [id number] IMPRESSION: Overall no significant changes compared to previous 1. No evidence of residual or recurrent disease. 2. Prior postoperative changes LEFT mandibulectomy with radical LEFT neck diss ection for previous retromolar trigone neoplasm. 3. Resection LEFT submandibular gland with postoperative changes in the LEFT n eneida. 4. No cervical lymphadenopathy. 5. No evidence of supraglottic or glottic mass. Subglottic airway is patent. 6. Retention cyst RIGHT maxillary sinus measuring 1.9 cm is unchanged.
--- NOTE | 2022-04-22 13:56 | CT_ITS ---
WS: [email or web address] CT CHEST TECHNIQUE: Contrast enhanced CT of the chest with coronal and sagittal reformatted images. CLINICAL INFORMATION: RETROMOLAR AREA NEOPLASM COMPARISON: CT 02/23/2021 and 08/22/2020. PET/CT 019 DLP: 638.[address] scans at [facility] use at least one of these dose optimization techniques: automated e xposure control; mA and/or kV adjustment per patient size (includes targeted exams where dose is matc hed to clinical indication); or iterative reconstruction. FINDINGS: Both lungs are well aerated. No acute pulmonary infiltrates today. No suspicious pulmonary parenchyma l abnormalities. Normal caliber thoracic aorta. Proximal main pulmonary arteries are normal. No axillary lymphadenopathy. No mediastinal or hilar lymphadenopathy. Adrenal glands are normal. Normal visualized portal vein and splenic vein. Upper abdominal aorta appe ars normal. Celiac and SMA are patent in the upper abdomen. CT/CT chest w con* [id number] IMPRESSION: 1. Both lungs are well aerated. No suspicious pulmonary parenchymal abnormalit ies. 2. No mediastinal or hilar lymphadenopathy. 3. No axillary lymphadenopathy. 4. No other significant findings.
[2022-04-22 14:15] LABS: Basophils % 0.5 %; Eosinophils % 0.6 %; Hematocrit 47.6 % (42.0-52.0); Hemoglobin 15.7 g/dL (11.7-16.6); Lymphocytes # 0.7 10^3/uL (0.8-4.8); Lymphocytes % 11.9 %; Mean Corpuscular Hemoglobin 31.3 pg (28.0-34.0); Mean Corpuscular Volume 94.8 fl (80-94); Mean Platelet Volume 8.7 fL (7.4-10.4); Monocytes # 0.6 10^3/uL (0.2-0.9); Monocytes % 9.9 %; Neutrophils # 4.78 10^3/uL (1.8-7.7); Neutrophils % 76.6 %; Nucleated Red Blood Cells % 0 %; Platelet Count 246 10^3/cmm (130-400); Red Blood Count 5.02 10^6/uL (4.1-5.3); White Blood Count 6.2 10^3/uL (4.0-10.0)
[2022-04-22] MEDS: iohexol 300 mg/mL 100 mL Btl IV ×2 (14:31)
[2022-04-22 14:41] LABS: Alanine Aminotransferase 27 U/L (0-41); Albumin Level 4.1 g/dL (3.5-5.2); Alkaline Phosphatase 69 IU/L (40-130); Aspartate Amino Transferase 24 U/L (0-40); Blood Urea Nitrogen 27 mg/dL (6-20); Calcium 9.1 mg/dL (8.5-10.5); Carbon Dioxide 30 mmol/L (22-29); Chloride 103 mmol/L (98-107); Globulin 2.8 g/dL (1.3-4.6); Glomerular Filtration Rate 76.7 mL/min (90-130); Glucose 105 mg/dL (65-115); Osmolality Calculated 297 mOsm/kg (285-295); Sodium 141 mmol/L (136-145); Thyroid Stimulating Hormone 2.92 uIU/mL (0.27-4.20); Total Bilirubin 0.3 mg/dL (0.15-1.2); Total Protein 6.9 g/dL (6.6-8.7)
[2022-04-22 14:42] LABS: Anion Gap 12.2 (5-19); Potassium 4.2 mmol/L (3.5-5.1)
== END 2022-04-25 23:59 | disposition home or self-care (01) ==
LOC: RAD 04-25 10:03 → ONCMTN 04-25 10:26 → ONCMED 05-08 16:08
PROVIDERS: Internal Medicine Medical Oncology; PCP Family Medicine; Referring Provider Internal Medicine Hematology & Oncology; Visit Provider Family Medicine
DX: C06.2 Malignant neoplasm of retromolar area (principal); D70.1 Agranulocytosis secondary to cancer chemotherapy; G89.3 Neoplasm related pain (acute) (chronic); R53.83 Other fatigue
CPT/HCPCS: 36415; 70491; 71260; 80053; 84443; 85025

== ENCOUNTER 2022-04-30 14:26 | Oncology outpatient (recurring) (ONCR) | payer MEDICARE, MEDICAID, SELFPAY | END 2022-05-26 23:59 | disposition home or self-care (01) | PROVIDERS: PCP Family Medicine; Referring Provider Internal Medicine Hematology & Oncology; Visit Provider Family Medicine | DX: Z08 Encounter for follow-up examination after completed treatment for malignant neoplasm (principal); Z85.818 Personal history of malignant neoplasm of other sites of lip, oral cavity, and pharynx; R53.83 Other fatigue; Z92.21 Personal history of antineoplastic chemotherapy; Z92.3 Personal history of irradiation | CPT/HCPCS: G0463 ==

== ENCOUNTER 2022-10-10 13:42 | Outpatient (CLI) | payer MEDICARE, MEDICAID, SELFPAY ==
--- NOTE | 2022-10-10 13:30 | CT_ITS ---
WS: [email or web address] CT CHEST TECHNIQUE: Contrast enhanced CT of the chest with coronal and sagittal reformatted images. CLINICAL INFORMATION: Surveillance COMPARISON: April 22, 2022 DLP: 1079.[address] scans at [facility] use at least one of these dose optimization techniques: automated e xposure control; mA and/or kV adjustment per patient size (includes targeted exams where dose is matc hed to clinical indication); or iterative reconstruction. FINDINGS: Lungs are well aerated. No focal pneumonia or pleural fluid. A few tree-in-bud opacities within the R IGHT upper lobe and RIGHT lower lobe posteriorly likely inflammatory. Slight patchy opacity LEFT lowe r lobe posteriorly new from previous. No focal pneumonia or pleural fluid. No solid pulmonary opaciti es suspicious for metastatic disease. Normal caliber thoracic aorta. Proximal main pulmonary arteries are normal. No mediastinal or hilar l ymphadenopathy. No axillary lymphadenopathy. Marked fluid distention of the stomach with air-fluid level. Adrenal glands are normal. Celiac and SM A are patent in the upper abdomen. No axillary lymphadenopathy. CT/CT chest w con* [id number] IMPRESSION: 1. No solid opacities suspicious for metastatic disease. 2. A few micronodular tree-in-bud opacities in the RIGHT upper lobe about the hilum and RIGHT lower lobe posteriorly nonspecific but most likely inflammatory . 3. Tiny amount of patchy infiltrate in the LEFT lower lobe likely infectious o r inflammatory. Recommend 3 month follow-up to assess resolution. 4. No mediastinal or hilar lymphadenopathy. 5. No other remarkable findings.
--- NOTE | 2022-10-10 14:00 | CT_ITS ---
WS: [id number] CT NECK TECHNIQUE: Contrast-enhanced CT of the neck with coronal and sagittal reformatted images. CLINICAL INFORMATION: Surveillance COMPARISON: None. DLP: 1079.[address] scans at [facility] use at least one of these dose optimization techniques: automated e xposure control; mA and/or kV adjustment per patient size (includes targeted exams where dose is matc hed to clinical indication); or iterative reconstruction. FINDINGS: Prior postoperative changes partial resection of the LEFT mandible. LEFT neck dissection with resecti on of the LEFT submandibular gland. Prior history of LEFT retrotrigonal malignancy. No evidence of enhancing residual or recurrent disease. Postoperative and posttherapeutic changes LEF T neck are unchanged. Normal posterior nasopharynx. No evidence of supraglottic or glottic mass. Airw ay is patent. No cervical lymphadenopathy. Mastoid air cells are well aerated. Air-fluid levels in the maxillary sinuses consistent with sinusit is. Fluid within the ethmoid air cells. Frontal sinuses are well aerated. Retention cyst LEFT sphenoi d sinus. Sinusitis is new compared to previous. Lung apices are well aerated. Partially visualized no rmal caliber thoracic aorta. Straightening of the normal cervical lordosis. Mild spondylitic changes cervical spine. Disc space narrowing worse at C5-C6 and C6-C7. CT/CT neck w con* [id number] IMPRESSION: 1. Prior postoperative changes LEFT mandibulectomy of the RIGHT ankle LEFT nec k dissection for previous retromolar trigone neoplasm. No evidence of recurrent or residual disease. 2. Prior resection of the LEFT submandibular gland postoperative changes in th e LEFT neck. 3. No evidence of supraglottic or glottic mass. Subglottic airway is patent. 4. No cervical lymphadenopathy. 5. Air-fluid levels in the maxillary sinuses with fluid in the ethmoid air александр ls compatible with sinusitis. This is new compared to previous. Mastoid air александр ls are well aerated.
== END 2022-10-10 13:43 | disposition home or self-care (01) ==
PROVIDERS: PCP Family Medicine; Visit Provider Internal Medicine Medical Oncology
DX: C06.2 Malignant neoplasm of retromolar area (principal)
CPT/HCPCS: 70491; 71260; Q9967

== ENCOUNTER 2022-11-05 13:01 | Oncology outpatient (recurring) (ONCR) | payer MEDICARE, MEDICAID, SELFPAY ==
[2022-11-05 13:40] LABS: Basophils % 0.6 %; Eosinophils # 0.1 10^3/uL (0.0-0.8); Hematocrit 43.2 % (42.0-52.0); Hemoglobin 14.1 g/dL (11.7-16.6); Lymphocytes # 0.7 10^3/uL (0.8-4.8); Lymphocytes % 14.7 %; Mean Corpuscular HGB Conc 32.6 g/dL (30.0-36.0); Mean Corpuscular Hemoglobin 30.9 pg (28.0-34.0); Mean Corpuscular Volume 94.7 fl (80-94); Mean Platelet Volume 8.5 fL (7.4-10.4); Monocytes # 0.6 10^3/uL (0.2-0.9); Monocytes % 12.5 %; Neutrophils # 3.58 10^3/uL (1.8-7.7); Neutrophils % 70.8 %; Nucleated Red Blood Cells % 0 %; Platelet Count 269 10^3/cmm (130-400); Red Blood Count 4.56 10^6/uL (4.1-5.3); Red Cell Distribution Width 13.1 % (12.1-15.1); White Blood Count 5.1 10^3/uL (4.0-10.0)
[2022-11-05 14:16] LABS: Alanine Aminotransferase 26 U/L (0-41); Alkaline Phosphatase 88 U/L (40-130); Aspartate Amino Transferase 22 U/L (0-40); Blood Urea Nitrogen 25 mg/dL (6-20); Carbon Dioxide 31 mmol/L (22-29); Chloride 101 mmol/L (98-107); Globulin 2.8 g/dL (1.3-4.6); Glomerular Filtration Rate 86.4 mL/min (90-130); Glucose 89 mg/dL (65-115); Osmolality Calculated 298 mOsm/kg (285-295); Sodium 142 mmol/L (136-145); Thyroid Stimulating Hormone 4.16 uIU/mL (0.27-4.20); Total Bilirubin 0.2 mg/dL (0.15-1.2); Total Protein 6.8 g/dL (6.6-8.7)
== END 2022-11-26 23:59 | disposition home or self-care (01) ==
PROVIDERS: PCP Family Medicine; Visit Provider Internal Medicine Medical Oncology
DX: Z08 Encounter for follow-up examination after completed treatment for malignant neoplasm (principal); Z85.818 Personal history of malignant neoplasm of other sites of lip, oral cavity, and pharynx; E46 Unspecified protein-calorie malnutrition; Z68.24 Body mass index [BMI] 24.0-24.9, adult; E07.89 Other specified disorders of thyroid; Z92.21 Personal history of antineoplastic chemotherapy; Z92.3 Personal history of irradiation
CPT/HCPCS: 36415; 80053; 84443; 85025; 99213

== ENCOUNTER 2023-06-05 13:52 | Outpatient (CLI) | payer MEDICARE, MEDICAID, SELFPAY ==
--- NOTE | 2023-06-05 14:00 | CT_ITS ---
WS: [id number] CT chest w con* [id number] HISTORY: Surveillance TECHNIQUE: Axial imaging performed through the thorax. Coronal and sagittal reformats are submitted. All CT scans at [facility] use at least one of these dose optimization techniques: automated exposure control; mA and/or kV adjustment per patient size (includes targeted exams where dose is mat ched to clinical indication); or iterative reconstruction. CONTRAST: Omnipaque 350; 100 mL IV. DLP: 205.16 mGy.cm COMPARISON: 10/10/2022 and 04/22/2022 Lungs and central airway: No pulmonary mass or nodule. No pneumonia. Resolved tree-in-bud airspace in the right lung. Pleura: Normal. No pleural effusion. Heart and pericardium: Mild right heart enlargement. Mediastinum and gil: No mediastinum or hilar adenopathy. Vessels: Very mild atherosclerosis aorta. Normal size aorta and pulmonary artery. Chest wall and lower neck: No soft tissue masses. Upper abdomen: Contracted gallbladder. Probably due to nonfasting state. Similar findings on the prio r examination. No adrenal mass. The visualized liver is normal. Osseous structures: No destructive process. IMPRESSION: 1. No metastatic masses or nodules throughout the lungs. Resolved tree-in-bud airspace disease since 10/10/2022. 2. No adenopathy. Very mild right heart enlargement.
--- NOTE | 2023-06-05 14:30 | CT_ITS ---
WS: [id number] CT NECK WITH CONTRAST HISTORY: Follow-up neck cancer TECHNIQUE: Contiguous 2 mm axial images are performed through the neck with intravenous contrast. Sag ittal and coronal reformats are also submitted. All CT scans at [facility] use at least one o f these dose optimization techniques: automated exposure control; mA and/or kV adjustment per patient size (includes targeted exams where dose is matched to clinical indication); or iterative reconstruc tion. CONTRAST: CONTRAST: Omnipaque 350; 75 mL IV. DLP: 131.05 mGy.cm COMPARISON: 10/10/2022 Postoperative changes of partial resection of the left mandible with a left neck dissection are reide ntified. Partial resection of the left submandibular gland. Postsurgical changes along the left later al neck reidentified. No recurrent mass along the surgical bed. There is volume loss in the soft tiss ues with increased fatty component. No residual or recurrent tumor is identified. No change in the so ft tissue components. Oropharynx and retropharynx are similar to the prior study. No change in the la rynx. Airway is patent. No cervical chain lymphadenopathy. Mucous retention cyst in the right maxillary sinus along with bilateral maxillary sinus mucoperiostea l thickening. No air-fluid levels. Mastoid air cells are clear. Lung apices are clear. Upper thorax i s negative. Small caliber thyroid gland. No thyroid nodules. Cervical disc space narrowing most signi ficant at C5-6 and C6-7. IMPRESSION: 1. Stable postoperative changes involving the left neck. No change since 10/10/2022. 2. No recurrent or residual mass or abnormal enhancement or adenopathy. 3. Improved aeration maxillary and ethmoid sinuses since the prior study.
[2023-06-05 14:35] LABS: Blood Urea Nitrogen 23 mg/dL (8-23); Glomerular Filtration Rate 61.8 mL/min (90-130)
[2023-06-05] MEDS: iohexol 350 mg/mL 500 mL Btl (per mL) IV ×2 (14:43→14:49)
== END 2023-06-05 13:53 | disposition home or self-care (01) ==
LOC: RAD 13:56
PROVIDERS: PCP Family Medicine; Visit Provider Internal Medicine Medical Oncology
DX: C06.2 Malignant neoplasm of retromolar area (principal)
CPT/HCPCS: 70491; 71260; 82565; 84520; Q9967

== ENCOUNTER 2023-06-11 13:51 | Oncology outpatient (recurring) (ONCR) | payer MEDICARE, MEDICAID, SELFPAY ==
[2023-06-11 13:56] VITALS: BP 147/97; PULSE 98; RESP 18; TEMP 36.9; O2SAT 98
[2023-06-11 14:16] LABS: Basophils % 0.5 %; Eosinophils # 0.1 10^3/uL (0.0-0.8); Eosinophils % 0.9 %; Hematocrit 46.5 % (42.0-52.0); Hemoglobin 15.6 g/dL (11.7-16.6); Lymphocytes % 17.7 %; Mean Corpuscular HGB Conc 33.5 g/dL (30.0-36.0); Mean Corpuscular Hemoglobin 31.6 pg (28.0-34.0); Mean Corpuscular Volume 94.3 fl (80-94); Mean Platelet Volume 8.5 fL (7.4-10.4); Monocytes # 0.7 10^3/uL (0.2-0.9); Monocytes % 11.9 %; Neutrophils # 3.76 10^3/uL (1.8-7.7); Neutrophils % 68.6 %; Nucleated Red Blood Cells % 0 %; Platelet Count 267 10^3/cmm (130-400); Red Blood Count 4.93 10^6/uL (4.1-5.3); Red Cell Distribution Width 12.7 % (12.1-15.1); White Blood Count 5.5 10^3/uL (4.0-10.0)
[2023-06-11 14:56] LABS: Alanine Aminotransferase 55 U/L (0-41); Albumin Level 3.9 g/dL (3.5-5.2); Alkaline Phosphatase 76 U/L (40-130); Aspartate Amino Transferase 40 U/L (0-40); Blood Urea Nitrogen 25 mg/dL (8-23); Carbon Dioxide 31 mmol/L (22-29); Chloride 102 mmol/L (98-107); Creatinine Clr Calc Pharmacy 76.8476; Globulin 2.8 g/dL (1.3-4.6); Glomerular Filtration Rate 76.2 mL/min (90-130); Glucose 121 mg/dL (65-115); Osmolality Calculated 300 mOsm/kg (285-295); Sodium 142 mmol/L (136-145); Thyroid Stimulating Hormone 1.98 uIU/mL (0.27-4.20); Total Bilirubin 0.4 mg/dL (0.15-1.2); Total Protein 6.7 g/dL (6.6-8.7)
== END 2023-06-26 23:59 | disposition home or self-care (01) ==
LOC: ONCMED 13:52
PROVIDERS: PCP Family Medicine; Visit Provider Internal Medicine Medical Oncology
DX: Z08 Encounter for follow-up examination after completed treatment for malignant neoplasm; Z85.818 Personal history of malignant neoplasm of other sites of lip, oral cavity, and pharynx; Z80.42 Family history of malignant neoplasm of prostate; Z92.21 Personal history of antineoplastic chemotherapy; Z92.3 Personal history of irradiation
CPT/HCPCS: 36415; 80053; 84443; 85025; 99213

== ENCOUNTER 2024-06-16 10:25 | Oncology outpatient (recurring) (ONCR) | payer MEDICARE, SELFPAY ==
[2024-06-10 11:35] LABS: Basophils % 0.6 %; Eosinophils # 0.1 10^3/uL (0.0-0.8); Eosinophils % 2.7 %; Hematocrit 47.1 % (37-53); Lymphocytes % 20.1 %; Mean Corpuscular HGB Conc 33.1 g/dL (30-55); Mean Corpuscular Hemoglobin 31.5 pg (27-33); Mean Platelet Volume 8.6 fL (7.4-10.4); Monocytes # 0.6 10^3/uL (0.2-0.9); Monocytes % 13.1 %; Neutrophils # 2.97 10^3/uL (1.8-7.7); Neutrophils % 62.9 %; Nucleated Red Blood Cells % 0 %; Platelet Count 273 10^3/cmm (157-399); Red Blood Count 4.96 10^6/uL (3.85-5.65); Red Cell Distribution Width 13.2 % (12.1-15.1); White Blood Count 4.73 10^3/uL (3.29-11.43)
[2024-06-10 11:53] LABS: Alanine Aminotransferase 23 U/L (0-41); Albumin Level 4.1 g/dL (3.5-5.2); Alkaline Phosphatase 81 U/L (40-130); Anion Gap 17.9 (5-19); Aspartate Amino Transferase 19 U/L (0-40); Blood Urea Nitrogen 25 mg/dL (8-23); Carbon Dioxide 26 mmol/L (22-29); Chloride 101 mmol/L (98-107); Creatinine Clr Calc Pharmacy 96.2275; Globulin 2.8 g/dL (1.3-4.6); Glomerular Filtration Rate 98.3 mL/min (90-130); Glucose 125 mg/dL (65-115); Osmolality Calculated 298 mOsm/kg (285-295); Potassium 3.9 mmol/L (3.5-5.1); Sodium 141 mmol/L (136-145); Thyroid Stimulating Hormone 1.55 uIU/mL (0.27-4.20); Total Bilirubin 0.5 mg/dL (0.15-1.2); Total Protein 6.9 g/dL (6.6-8.7)
[2024-06-10 13:53] LABS: Prostate Specific Antigen Scr 4.03 ng/mL (0-4)
--- NOTE | 2024-06-16 10:30 | CT_ITS ---
WS: [id number] CT chest w con* [id number] HISTORY: Follow-up neck cancer. TECHNIQUE: Axial imaging performed through the thorax. Coronal and sagittal reformats are submitted. All CT scans at [facility] use at least one of these dose optimization techniques: automated exposure control; mA and/or kV adjustment per patient size (includes targeted exams where dose is mat ched to clinical indication); or iterative reconstruction. CONTRAST: Omnipaque 350; 100 mL IV. DLP: 623.34 mGy.cm COMPARISON: 06/05/2023, 10/10/2022 Lungs and central airway: Well-aerated lungs. No pulmonary mass or pneumonia. No endobronchial lesion s. No pneumothorax. Pleura: Normal. No pleural effusion. Heart and pericardium: Normal size heart with no pericardial effusion. Mediastinum and gli: Small mediastinal and hilar lymph nodes. No adenopathy. Vessels: LEFT carotid artery arises from the base of the innominate. Normal size aorta and pulmonary artery. Chest wall and lower neck: No soft tissue masses. Upper abdomen: Fluid distended stomach. There is significant distention of the stomach which may be d ue to recent fluid ingestion. Gallbladder is contracted which is probably due to a nonfasting state. The adrenal glands are negative. Visualized liver is normal. Small hiatal hernia. Osseous structures: No destructive process. CT/CT chest w con* [id number] IMPRESSION: 1. No metastatic disease or pulmonary nodules. No pneumonia. 2. No mediastinal or hilar adenopathy. There are small hilar lymph nodes which are stable. No metastatic nodules. 3. Small hiatal hernia.
[2024-06-16] MEDS: iohexol 350 mg/mL 500 mL Btl (per mL) IV (10:48)
--- NOTE | 2024-06-16 11:00 | CT_ITS ---
WS: [id number] CT NECK WITH CONTRAST HISTORY: Follow-up neck cancer TECHNIQUE: Contiguous 2 mm axial images are performed through the neck with intravenous contrast. Sag ittal and coronal reformats are also submitted. All CT scans at [facility] use at least one o f these dose optimization techniques: automated exposure control; mA and/or kV adjustment per patient size (includes targeted exams where dose is matched to clinical indication); or iterative reconstruc tion. CONTRAST: CONTRAST: Omnipaque 350; 100 mL IV. DLP: 623.34 mGy.cm COMPARISON: 06/05/2023, 10/10/2022 Prior postoperative changes of a partial resection of the LEFT mandible. There is a LEFT neck dissection with resection of the LEFT submandibular gland. At the resection site there is no evidence for recurrent mass or residual mass. Post operative clips are identified which are stable. There is no cervical chain adenopathy. Oropharynx and retropharynx are negative. There is mild distortion of the upper airway due to the sal monique. There is no stenosis or compromise of the airway. No RIGHT neck mass or adenopathy. Mild degenerative cervical changes at C5-6. Visualized portions of the skull base demonstrate no abnormalities. Orbits and globes are within norm al limits. No soft tissue masses. Large mucous retention cyst RIGHT maxillary sinus measures 1.6 x 2.7 cm which is similar to prior stephan dies. Additional mucoperiosteal thickening bilaterally in the maxillary sinuses. Orbits and globes ar e negative. Mastoid air cells are clear. Lung apices are clear. CT/CT neck w con* [id number] IMPRESSION: 1. Continued stability of the postoperative changes involving the LEFT neck wi th no change since 10/10/2022. 2. No recurrent or residual mass or abnormal enhancement. 3. No cervical chain lymphadenopathy. 4. Continued mucoperiosteal sinus disease and RIGHT maxillary sinus mucous ret ention cyst.
== END 2024-06-26 23:55 | disposition home or self-care (01) ==
LOC: ONCMED 10:25 → RAD 10:25 → ONCMED 06-17 16:35
PROVIDERS: PCP Family Medicine; Visit Provider Nurse Practitioner Family
DX: C06.2 Malignant neoplasm of retromolar area; J32.8 Other chronic sinusitis; J34.1 Cyst and mucocele of nose and nasal sinus; K44.9 Diaphragmatic hernia without obstruction or gangrene; R59.0 Localized enlarged lymph nodes
CPT/HCPCS: 36415; 70491; 71260; 80053; 84443; 85025; 99214; G0103; Q9967

== ENCOUNTER 2025-05-20 09:16 | Oncology outpatient (recurring) (ONCR) | payer MEDICARE, SELFPAY ==
[2025-05-20 09:39] LABS: Hematocrit 46.8 % (37-53); Hemoglobin 15.60 g/dL (11.27-16.99); Mean Corpuscular HGB Conc 33.3 g/dL (30-55); Mean Corpuscular Hemoglobin 31.3 pg (27-33); Mean Corpuscular Volume 93.8 fl (82-101); Nucleated Red Blood Cells % 0 %; Platelet Count 261 10^3/cmm (157-399); Red Blood Count 4.99 10^6/uL (3.85-5.65); White Blood Count 5.41 10^3/uL (3.29-11.43)
[2025-05-20 10:08] LABS: Alanine Aminotransferase 26 U/L (0-41); Albumin Level 4.2 g/dL (3.5-5.2); Alkaline Phosphatase 84 U/L (40-130); Anion Gap 14.1 (5-19); Aspartate Amino Transferase 21 U/L (0-40); Blood Urea Nitrogen 23 mg/dL (8-23); Calcium 9.3 mg/dL (8.5-10.5); Carbon Dioxide 31 mmol/L (22-29); Chloride 100 mmol/L (98-107); Creatinine Clr Calc Pharmacy 106.3060; Globulin 2.9 g/dL (1.3-4.6); Glucose 101 mg/dL (65-115); Osmolality Calculated 296 mOsm/kg (285-295); Potassium 4.1 mmol/L (3.5-5.1); Sodium 141 mmol/L (136-145); Thyroid Stimulating Hormone 2.30 uIU/mL (0.27-4.20); Total Protein 7.1 g/dL (6.6-8.7)
== END 2025-05-26 23:59 | disposition home or self-care (01) ==
PROVIDERS: Nurse Practitioner Family; PCP Nurse Practitioner Family; Visit Provider Internal Medicine
DX: Z08 Encounter for follow-up examination after completed treatment for malignant neoplasm (principal); Z85.89 Personal history of malignant neoplasm of other organs and systems; R53.83 Other fatigue; R03.0 Elevated blood-pressure reading, without diagnosis of hypertension; R68.84 Jaw pain; Z92.3 Personal history of irradiation; Z87.891 Personal history of nicotine dependence
CPT/HCPCS: 36415; 80053; 84443; 85025; 99214

== ENCOUNTER 2025-06-01 08:19 | Outpatient (CLI) | payer MEDICARE, SELFPAY ==
--- NOTE | 2025-06-01 08:31 | CT_ITS ---
WS: [id number] CT NECK WITH CONTRAST HISTORY: New right jaw pain; stage IV disease TECHNIQUE: Contiguous 2 mm axial images are performed through the neck with intravenous contrast. Sagittal and coronal reformats are also submitted. All CT scans at [facility] use at least one of these dose optimization techniques: automated exposure control; mA and/or kV adjustment per patient size (includes targeted exams where dose is matched to clinical indication); or iterative reconstruction. CONTRAST: CONTRAST: Omnipaque 350; 100 mL IV. DLP: 161.04 mGy.cm COMPARISON: 06/16/2024, 04/22/2022, 06/05/2023 Patient is status post LEFT neck dissection and LEFT partial mandibulectomy. Extensive surgical sutures are noted along the LEFT face and neck. No recurrent mass or adenopathy is identified. No recurrent disease. Supraglottic and glottic airways are unremarkable. There is mild deviation of the airway to the LEFT due to the surgical changes. Postsurgical changes in the involving the LEFT mandible are stable. No bone destruction. Mucoperiosteal thickening and retention cyst in the RIGHT maxillary sinus. Smaller amount of mucoperiosteal thickening in the LEFT maxillary sinus. Mastoid air cells are clear. Visualized lung apices are clear. CT/CT neck w con* [id number] IMPRESSION: 1. Prior postoperative changes of LEFT neck dissection and LEFT mandibulectomy . No recurrent mass. 2. No pathologically enlarged lymph nodes identified. 3. No osseous destruction. Bones and soft tissues are very similar to prior st udies dating back to 10/10/2022.
--- NOTE | 2025-06-01 08:31 | CT_ITS ---
WS: [email or web address] CT chest w con* [id number] HISTORY: new onset right jaw pain; Stage IV disease TECHNIQUE: Axial imaging performed through the thorax. Coronal and sagittal reformats are submitted. All CT scans at [facility] use at least one of these dose optimization techniques: automated exposure control; mA and/or kV adjustment per patient size (includes targeted exams where dose is matched to clinical indication); or iterative reconstruction. CONTRAST: Omnipaque 350; 100 mL IV. DLP: 313.45 mGy.cm COMPARISON: 06/16/2024 Lungs and central airway: No pulmonary nodule or mass. No metastatic disease identified. No pneumonia. Pleura: Normal. No pleural effusion. Heart and pericardium: Normal size heart with no pericardial effusion. Mediastinum and gil: No mediastinum or hilar adenopathy. Vessels: Normal size aortic and pulmonary artery. No coronary artery calcifications. Chest wall and lower neck: No soft tissue masses. Upper abdomen: Small hiatal hernia. Large amount of fluid distending the stomach. Gallbladder is slightly contracted. No adrenal mass. Visualized liver is normal. Osseous structures: No destructive process. CT/CT chest w con* [id number] IMPRESSION: 1. No pulmonary nodule or metastatic disease. No pneumonia. 2. No mediastinal or hilar adenopathy. 3. Small hiatal hernia.
[2025-06-01] MEDS: iohexol 350 mg/mL 500 mL Btl (per mL) IV ×2 (08:56→08:57)
== END 2025-06-01 08:20 | disposition home or self-care (01) ==
LOC: RAD 08:20
PROVIDERS: PCP Nurse Practitioner Family; Visit Provider Nurse Practitioner Family
DX: C06.2 Malignant neoplasm of retromolar area (principal); Z98.890 Other specified postprocedural states; K44.9 Diaphragmatic hernia without obstruction or gangrene
CPT/HCPCS: 70491; 71260

== ENCOUNTER 2025-10-06 08:06 | Outpatient (CLI) | payer MEDICARE, SELFPAY ==
--- NOTE | 2025-10-06 08:12 | USR_ITS ---
PROCEDURE INFORMATION: Exam: US Right Limited Joint or Other Non-Vascular Extremity Structure Exam date and time: 10/06/2025 8:16 AM Age: 60 years old Clinical indication: Mass or lump; Elbow; Right; Additional info: RT arm mass TECHNIQUE: Imaging protocol: US right limited joint or other nonvascular extremity structure. Real-time ultrasound with image documentation. Exam focused on the area of clinical interest. COMPARISON: CT neck w con* [id number] 06/01/2025 8:48 AM FINDINGS: Soft tissues: Unremarkable. No loculated collections. Other findings: Ultrasound was performed of the area of concern. No abnormal mass or fluid collection was identified. US/US soft tissue/extremity [id number] IMPRESSION: Normal findings.
== END 2025-10-06 08:07 | disposition home or self-care (01) ==
LOC: RAD 08:07
PROVIDERS: PCP Nurse Practitioner Family; Visit Provider Nurse Practitioner Family
DX: R22.31 Localized swelling, mass and lump, right upper limb (principal)
CPT/HCPCS: 76882; 95911